=== PATIENT | male | born 1960 | race Caucasian/White ===

== ENCOUNTER 2022-02-28 21:27 | Emergency (ER) | payer BC ==
--- NOTE | 2022-02-28 22:18 | ED Physician Documentation ---
PD HPI LOWER EXT INJURY - Stated complaint Stated Complaint: L ANKLE INJ - Chief complaint Chief Complaint: Trauma Ext - History obtained from History obtained from: Patient (Healthy 61-year-old gentleman visiting from [place] and inverted the left ankle. Moderate pain. He is able to walk and bear weight. No other injuries.) Review of Systems Constitutional: reports: Reviewed and negative Eyes: reports: Reviewed and negative Ears: reports: Reviewed and negative Respiratory: reports: Reviewed and negative PD PAST MEDICAL HISTORY - Present Medications Home Medications: Ambulatory Orders Medication Instructions Recorded Confirmed HYDROcod/ACETAM 5/325 [[place] 5/325] 1 - 2 tab PO Q6H PRN #10 tablet 02/28/22 - Allergies Allergies/Adverse Reactions: Allergies Allergy/AdvReac Type Severity Reaction Status Date / Time No Known Drug Allergies Allergy Verified 02/28/22 21:53 PD ED PE NORMAL - Vitals Vital signs reviewed: Yes - General General: Alert and oriented X 3, No acute distress - Extremities Extremities: Other (Tenderness over the lateral malleolus of the left ankle. No proximal fibular tenderness. No medial tenderness. No tenderness over the anterior talus or Achilles.) - Neuro Neuro: Alert and oriented X 3, Normal speech Results - Vitals Vitals: Vital Signs - 24 hr 02/28/22 02/28/22 21:50 22:39 Temperature 36.5 C 36.5 C Heart Rate 90 88 Respiratory 16 16 Rate Blood Pressure 153/100 H 130/90 H O2 Saturation 97 97 Oxygen O2 Source Room air PD MEDICAL DECISION MAKING - ED course ED course: 61-year-old gentleman with left ankle injury. X-ray negative. Given a Vicodin prepack. Of note his prescription was not E prescribed as he uses [place] [employer] which is not in our database. Departure - Departure Disposition: Home, Self Care Clinical Impression: Left ankle sprain Condition: Good Record reviewed to determine appropriate education?: Yes Instructions: ED Sprain Ankle W X Ray Prescriptions: HYDROcod/ACETAM 5/325 [[place] 5/325] 1 - 2 tab PO Q6H PRN #10 tablet PRN Reason: Pain Comments: Recheck with your doctor in a week if not better, return for new or worsening symptoms. I am prescribing a short course of narcotic pain medication for you. These are potentially dangerous and addictive medications that should be used carefully. These medications may constipate you. Take an qvkj-vxa-kadllbo stool softener (docusate) twice daily with plenty of water while taking these medications. If you go 24 hours without a bowel movement, take aiek-zww-chmhjfy miralax, per package instructions. Do not drink or drive while taking these medications. If you received narcotic or sedating medications while in the emergency department, do not drive for 24 hours. Store this medication in a safe, secure place and out of reach of children. It is a violation of federal law to give or sell this medication to another person or to use in a manner other than prescribed. The ED will not refill narcotic prescriptions, including prescriptions lost or stolen. To dispose of unwanted medications: 1. [facility] [address] in [place] has a medication drop box. They accept prescription medications (in pill form) Tuesday through Tuesday 9:00 a.m. to 5:00 p.m. 2. The [facility] accepts prescription medications (in pill form only) for disposal year round. Call for more information. 3. Contact the [facility] for the next [facility] sponsored prescription drug collection event. , [phone], or [phone]; Note that many narcotic pain relievers also contain Tylenol/acetaminophen. Please ensure that your total dose of acetaminophen from all sources does not exceed 3 g (3000 mg) per day. Discharge Date/Time: 02/28/22 22:39
[2022-02-28] MEDS ORDERED: HYDROcod/ACET 5/325 Prepack 4 PO STA (22:21)
--- NOTE | 2022-02-28 22:40 | XRAY Report ---
PROCEDURE: Ankle 3 View LT INDICATIONS: injury/pain TECHNIQUE: 3 views of the ankle were acquired. COMPARISON: None FINDINGS: Bones: No fractures or dislocations. Ankle mortise is normally aligned. No suspicious bony lesions . Mildly prominent plantar calcaneal spur. Prominent os trigonum. Soft tissues: Small tibiotalar joint effusion. Achilles tendon appears normal. Lateral periarticula r soft tissue swelling. IMPRESSION: 1. No fractures. 2. Lateral soft tissue swelling and small tibiotalar joint effusion indicates sprain. Reviewed by: Sylvia Vuong MD on 02/28/2022 10:39 PM PDT Approved by: Sylvia Vuong MD on 02/28/2022 10:39 PM PDT Station ID: [id number]
[2022-02-28 22:41] VITALS: BP 130/90
== END 2022-02-28 22:39 | disposition home or self-care (01) ==
LOC: ED 21:27
DX: S93.402A Sprain of unspecified ligament of left ankle, initial encounter (principal); X50.1XXA Overexertion from prolonged static or awkward postures, initial encounter; X50.9XXA Other and unspecified overexertion or strenuous movements or postures, initial encounter; Y93.01 Activity, walking, marching and hiking; Y92.832 Beach as the place of occurrence of the external cause
CPT/HCPCS: 99282; 99283